=== PATIENT | female | born 1950 | race Caucasian/White ===

== ENCOUNTER 2016-09-22 02:00 | Inpatient (IN) | payer MEDICARE ==
[~2016-09-22] VITALS: Ht 162.6 cm; Wt 77.0 kg
[~2016-09-22 02:00] MED LIST: ASPIRIN CHEWABL81 MG PO; ATROVENT INH S2.5 ML INH; CLARITIN10 MG PO; DALIRESP 500500 MCG PO; FERROUS SULFAT325 M2 PO; FLEXERIL 10 MG10 MG PO; KLONOPIN TAB 00.5 MG PO; LASIX20 MG PO; LEVAQUIN TAB 2250 MG PO; LEVAQUIN500 MG PO; LEVAQUIN750 MG PO; LOPRESSOR 50 MG50 MG PO; LORTAB 5-325 M1 EACH PO; MEDROL DOSEPAK 24 MG PO; NEURONTIN800 MG PO; NITROSTAT0.4 MG SL; PRILOSEC OTC20 MG PO; PROAIR HFA8.5 GM INH; SINGULAIR10 MG PO; SPIRIVA18 MCG INH; SYMBICORT 16010.2 GM INH; THERAGRAN TAB1 EA PO; VENTOLIN/PROVE0.5 ML INH; VITAMIN D350000 UNIT PO; ZANTAC150 MG PO
[2016-09-22 02:44] LABS: HEMOGLOBIN 13.3 gm/dl (12.3-15.3); RED BLOOD COUNT 4.25 M/UL (4.00-5.10); WHITE BLOOD COUNT 15.5 K/UL (4.5-11.0)
[2016-09-22] MEDS ORDERED: POTASSIUM CHLO10 ME2 PO (09:48)
[2016-09-22] MEDS ORDERED: SPIRIVA18 MCG INH (09:48)
[2016-09-22] MEDS ORDERED: LORTAB 5-325 M1 EACH PO (09:50)
[2016-09-22] MEDS ORDERED: KLONOPIN TAB 00.5 MG PO (09:51)
[2016-09-22] MEDS ORDERED: PREDNISONE20 MG PO (09:52)
[2016-09-22] MEDS ORDERED: OMNICEF 300 MG300 MG PO (09:54)
[2016-09-23 04:01] LABS: RED BLOOD COUNT 3.33 M/UL (4.00-5.10); WHITE BLOOD COUNT 12.1 K/UL (4.5-11.0)
[2016-09-23 04:09] LABS: BUN/CREATININE RATIO 19 (0-10)
[2016-09-24 03:47] LABS: HEMOGLOBIN 10.5 gm/dl (12.3-15.3)
[2016-09-24 04:14] LABS: BUN/CREATININE RATIO 22 (0-10)
[2016-09-25 06:43] LABS: HEMOGLOBIN 11.8 gm/dl (12.3-15.3)
[2016-09-25 06:48] LABS: RED BLOOD COUNT 3.88 M/UL (4.00-5.10); WHITE BLOOD COUNT 8.2 K/UL (4.5-11.0)
[2016-09-25 07:01] LABS: BUN/CREATININE RATIO 38 (0-10)
[2016-09-26 06:15] LABS: BUN/CREATININE RATIO 31 (0-10)
[2016-09-27] MEDS ORDERED: NORVASC 5 MG TAB5 MG PO (15:20)
[2016-09-27] MEDS ORDERED: LEVAQUIN750 MG PO (15:20)
[2016-09-27] MEDS ORDERED: FUROSEMIDE20 MG PO (16:03)
[2017-02-11] MEDS ORDERED: SYMBICORT 160-1 INHA INH (11:33)
[2017-02-11] MEDS ORDERED: PROAIR HFA8.5 GM INH (11:40)
[2017-02-15] MEDS ORDERED: CARDIZEM60 MG PO (14:40)
[2017-04-22] MEDS ORDERED: CLARITIN10 M2 PO (11:04)
[2017-04-22] MEDS ORDERED: POTASSIUM CHLO10 MEQ PO (11:05)
[2017-04-22] MEDS ORDERED: NITROSTAT0.4 MG SL (11:06)
[2017-04-22] MEDS ORDERED: SPIRIVA18 MCG INH (11:06)
== END 2016-09-27 17:25 | disposition home or self-care (01) | DRG 208 ==
LOC: ER1 02:00 → ZEROF 05:30 → MED SURG 4 05:30 → CCU 08:06 → MED SURG 4 09-24 13:30
PROVIDERS: Emergency Medicine; Legal Medicine; Physician Assistant; ADMIT Internal Medicine
PROC: 5A1945Z Respiratory Ventilation, 24-96 Consecutive Hours (ICD-10-PCS; principal; 2016-09-22)
PROC: 0BH17EZ Insertion of Endotracheal Airway into Trachea, Via Natural or Artificial Opening (ICD-10-PCS; 2016-09-22)
DX: J96.22 Acute and chronic respiratory failure with hypercapnia (principal); J18.9 Pneumonia, unspecified organism; I50.33 Acute on chronic diastolic (congestive) heart failure; J44.1 Chronic obstructive pulmonary disease with (acute) exacerbation; I47.2 Ventricular tachycardia; I31.3 Pericardial effusion (noninflammatory); J96.21 Acute and chronic respiratory failure with hypoxia; I11.0 Hypertensive heart disease with heart failure; I25.10 Atherosclerotic heart disease of native coronary artery without angina pectoris; E87.6 Hypokalemia; I27.2 Other secondary pulmonary hypertension; D64.9 Anemia, unspecified; I08.1 Rheumatic disorders of both mitral and tricuspid valves; K21.9 Gastro-esophageal reflux disease without esophagitis; G89.29 Other chronic pain; M54.9 Dorsalgia, unspecified; F17.210 Nicotine dependence, cigarettes, uncomplicated; F03.90 Unspecified dementia, unspecified severity, without behavioral disturbance, psychotic disturbance, mood disturbance, and anxiety; F41.1 Generalized anxiety disorder; Z87.01 Personal history of pneumonia (recurrent); Z79.82 Long term (current) use of aspirin; Z99.81 Dependence on supplemental oxygen; Z79.51 Long term (current) use of inhaled steroids; Z79.52 Long term (current) use of systemic steroids; Z79.891 Long term (current) use of opiate analgesic; Z79.899 Other long term (current) drug therapy; Z88.6 Allergy status to analgesic agent; Z88.0 Allergy status to penicillin; Z90.49 Acquired absence of other specified parts of digestive tract; Z98.890 Other specified postprocedural states; Z83.3 Family history of diabetes mellitus; Z82.5 Family history of asthma and other chronic lower respiratory diseases; Z82.49 Family history of ischemic heart disease and other diseases of the circulatory system
CPT/HCPCS: ECHO; 31500; 36415; 36600; 70450; 71010; 80048; 80053; 81001; 82550; 82553; 82607; 82728; 82746; 82803; 83540; 83605; 83690; 83735; 83874; 83880; 84132; 84439; 84443; 84484; 85014; 85018; 85025; 85027; 85610; 85730; 87040; 87086; 93005; 93306; 94002; 94003; 94640; 94660; 96361; 96374; 96375; 97110; 97116; 99291; C9113; J0330; J1650; J1940; J1956; J2185; J2310; J2920; J3370; J7030; J7050; J7070; J7509

== ENCOUNTER 2016-11-18 11:43 | Inpatient (IN) | payer MEDICARE ==
[~2016-11-18] VITALS: Ht 157.5 cm; Wt 60.8 kg
[~2016-11-18 11:43] MED LIST changes: +FUROSEMIDE20 MG PO; +NORVASC 5 MG TAB5 MG PO; +OMNICEF 300 MG300 MG PO; +POTASSIUM CHLO10 ME2 PO; +PREDNISONE20 MG PO
[2016-11-18 12:57] LABS: HEMOGLOBIN 11.5 gm/dl (12.3-15.3); RED BLOOD COUNT 3.85 M/UL (4.00-5.10); WHITE BLOOD COUNT 6.2 K/UL (4.5-11.0)
[2016-11-19 04:52] LABS: HEMOGLOBIN 9.9 gm/dl (12.3-15.3)
[2016-11-19 04:57] LABS: RED BLOOD COUNT 3.3 M/UL (4.00-5.10); WHITE BLOOD COUNT 16.7 K/UL (4.5-11.0)
[2016-11-19 05:19] LABS: BUN/CREATININE RATIO 19 (0-10)
[2016-11-19 14:35] LABS: BORDETELLA PERTUSSIS Not Detected (Negative); CHLAMYDOPHLA PNEUMONIAE Not Detected (Negative); CORONAVIRUS HKU1 Not Detected (Negative); CORONAVIRUS NL63 Not Detected (Negative); CORONAVIRUS OC43 Not Detected (Negative); CORONOAVIRUS 229E Not Detected (Negative); HUMAN METAPNEUMOVIRUS Not Detected (Negative); HUMAN RHINOVIRUS/ENTEROVIRUS Not Detected (Negative); INFLUENZA A Not Detected (Negative); INFLUENZA A H-1-2009 Not Detected (Negative); INFLUENZA A H1 Not Detected (Negative); INFLUENZA A H3 Not Detected (Negative); INFLUENZA B Not Detected (Negative); MYCOPLASMA PNEUMONIAE Not Detected (Negative); PARAINFLUENZA VIRUS 1 Not Detected (Negative); PARAINFLUENZA VIRUS 2 Not Detected (Negative); PARAINFLUENZA VIRUS 3 Not Detected (Negative); PARAINFLUENZA VIRUS 4 Not Detected (Negative); RESPIRATORY SYNCYTIAL VIRUS Not Detected (Negative)
[2016-11-20 07:17] LABS: BUN/CREATININE RATIO 21 (0-10)
[2016-11-20 07:56] LABS: HEMOGLOBIN 8.7 gm/dl (12.3-15.3); RED BLOOD COUNT 2.83 M/UL (4.00-5.10); WHITE BLOOD COUNT 12.1 K/UL (4.5-11.0)
[2016-11-21 05:44] LABS: HEMOGLOBIN 9.3 gm/dl (12.3-15.3); RED BLOOD COUNT 3.06 M/UL (4.00-5.10)
[2016-11-21 05:45] LABS: WHITE BLOOD COUNT 7.5 K/UL (4.5-11.0)
[2016-11-21 06:07] LABS: BUN/CREATININE RATIO 15 (0-10)
[2016-11-22 06:04] LABS: HEMOGLOBIN 9.4 gm/dl (12.3-15.3); RED BLOOD COUNT 3.19 M/UL (4.00-5.10)
[2016-11-22 06:08] LABS: WHITE BLOOD COUNT 4.3 K/UL (4.5-11.0)
[2016-11-22 06:16] LABS: BUN/CREATININE RATIO 13 (0-10)
[2016-11-23] MEDS ORDERED: LEVAQUIN750 MG PO (11:55)
[2016-11-23] MEDS ORDERED: FERROUS SULFAT325 M2 PO (11:55)
[2016-11-23] MEDS ORDERED: MEDROL DOSEPAK 24 MG PO (15:21)
[2016-11-23] MEDS ORDERED: LISINOPRIL10 MG PO (15:23)
[2017-02-11] MEDS ORDERED: SYMBICORT 160-1 INHA INH (11:33)
[2017-02-11] MEDS ORDERED: PROAIR HFA8.5 GM INH (11:40)
[2017-02-15] MEDS ORDERED: CARDIZEM60 MG PO (14:40)
[2017-04-22] MEDS ORDERED: CLARITIN10 M2 PO (11:04)
[2017-04-22] MEDS ORDERED: POTASSIUM CHLO10 MEQ PO (11:05)
[2017-04-22] MEDS ORDERED: NITROSTAT0.4 MG SL (11:06)
[2017-04-22] MEDS ORDERED: SPIRIVA18 MCG INH (11:06)
== END 2016-11-23 12:37 | disposition home or self-care (01) | DRG 871 ==
LOC: ER1 11:43 → PROG CARE 14:24 → ZEROF 14:24 → M/S 14:24 → PROG CARE 23:10 → M/S 11-20 19:13 → ZEROF 11-22 10:48 → M/S 11-22 10:48 → ZEROF 11-23 15:53 → M/S 11-23 15:53
PROVIDERS: Emergency Medicine; ADMIT Emergency Medicine
PROC: 5A09357 Assistance with Respiratory Ventilation, Less than 24 Consecutive Hours, Continuous Positive Airway Pressure (ICD-10-PCS; principal; 2016-11-18)
DX: A41.9 Sepsis, unspecified organism (principal); J18.9 Pneumonia, unspecified organism; J96.21 Acute and chronic respiratory failure with hypoxia; J96.22 Acute and chronic respiratory failure with hypercapnia; J44.1 Chronic obstructive pulmonary disease with (acute) exacerbation; J44.0 Chronic obstructive pulmonary disease with (acute) lower respiratory infection; I50.32 Chronic diastolic (congestive) heart failure; R04.2 Hemoptysis; D50.9 Iron deficiency anemia, unspecified; I25.10 Atherosclerotic heart disease of native coronary artery without angina pectoris; I27.2 Other secondary pulmonary hypertension; I08.1 Rheumatic disorders of both mitral and tricuspid valves; I11.0 Hypertensive heart disease with heart failure; E87.6 Hypokalemia; E83.42 Hypomagnesemia; K21.9 Gastro-esophageal reflux disease without esophagitis; R91.8 Other nonspecific abnormal finding of lung field; G89.29 Other chronic pain; M54.9 Dorsalgia, unspecified; F17.210 Nicotine dependence, cigarettes, uncomplicated; G47.00 Insomnia, unspecified; F32.9 Major depressive disorder, single episode, unspecified; F41.9 Anxiety disorder, unspecified; Z99.81 Dependence on supplemental oxygen; Z79.51 Long term (current) use of inhaled steroids; Z79.891 Long term (current) use of opiate analgesic; Z79.82 Long term (current) use of aspirin; Z79.899 Other long term (current) drug therapy; Z88.6 Allergy status to analgesic agent; Z88.0 Allergy status to penicillin; Z90.49 Acquired absence of other specified parts of digestive tract; Z98.890 Other specified postprocedural states; Z80.1 Family history of malignant neoplasm of trachea, bronchus and lung; Z82.49 Family history of ischemic heart disease and other diseases of the circulatory system; Z83.3 Family history of diabetes mellitus
CPT/HCPCS: ECHO; 36415; 36600; 51702; 71010; 71020; 71250; 80048; 80053; 80202; 81001; 82272; 82550; 82553; 82607; 82728; 82746; 82803; 82962; 83540; 83605; 83735; 83874; 83880; 84132; 84466; 84484; 85025; 85027; 85045; 87040; 87070; 87205; 87486; 87581; 87633; 87798; 93005; 93306; 94640; 94660; 94664; 94667; 94668; 96361; 96365; 96366; 96367; 96376; 97116; 97530; 99285; J0360; J1650; J2185; J3370; J7030; J7050; J7070

== ENCOUNTER 2016-12-16 18:17 | Inpatient (IN) | payer MEDICARE ==
[~2016-12-16] VITALS: Ht 165.1 cm; Wt 83.9 kg
[~2016-12-16 18:17] MED LIST changes: +LISINOPRIL10 MG PO
[2016-12-16 19:08] LABS: HEMOGLOBIN 9.8 gm/dl (12.3-15.3); RED BLOOD COUNT 3.3 M/UL (4.00-5.10); WHITE BLOOD COUNT 13.2 K/UL (4.5-11.0)
[2016-12-16 19:34] LABS: BUN/CREATININE RATIO 9 (0-10)
[2016-12-17 07:13] LABS: HEMOGLOBIN 10.8 gm/dl (12.3-15.3); RED BLOOD COUNT 3.6 M/UL (4.00-5.10)
[2016-12-17 07:14] LABS: WHITE BLOOD COUNT 9.2 K/UL (4.5-11.0)
[2016-12-17] MEDS ORDERED: CYCLOBENZAPRINE10 MG PO (08:26)
[2016-12-18 03:39] LABS: HEMOGLOBIN 9.3 gm/dl (12.3-15.3); WHITE BLOOD COUNT 9.6 K/UL (4.5-11.0)
[2016-12-18 03:41] LABS: RED BLOOD COUNT 3.17 M/UL (4.00-5.10)
[2016-12-18 03:58] LABS: BUN/CREATININE RATIO 19 (0-10)
[2016-12-19 01:01] LABS: HEMOGLOBIN 9.1 gm/dl (12.3-15.3); RED BLOOD COUNT 3.11 M/UL (4.00-5.10); WHITE BLOOD COUNT 9.4 K/UL (4.5-11.0)
[2016-12-19 01:25] LABS: BUN/CREATININE RATIO 16 (0-10)
[2016-12-19 06:28] LABS: HEMOGLOBIN 10.2 gm/dl (12.3-15.3); RED BLOOD COUNT 3.42 M/UL (4.00-5.10)
[2016-12-19 06:31] LABS: WHITE BLOOD COUNT 11.8 K/UL (4.5-11.0)
[2016-12-19 06:49] LABS: BUN/CREATININE RATIO 13 (0-10)
[2016-12-20 05:14] LABS: HEMOGLOBIN 9.2 gm/dl (12.3-15.3); RED BLOOD COUNT 3.14 M/UL (4.00-5.10)
[2016-12-20 05:15] LABS: WHITE BLOOD COUNT 2.8 K/UL (4.5-11.0)
[2016-12-20 05:35] LABS: BUN/CREATININE RATIO 11 (0-10)
[2016-12-21] MEDS ORDERED: CARDIZEM CD240 MG PO (18:20)
[2016-12-21] MEDS ORDERED: LEVAQUIN500 MG PO (18:20)
[2017-02-11] MEDS ORDERED: SYMBICORT 160-1 INHA INH (11:33)
[2017-02-11] MEDS ORDERED: PROAIR HFA8.5 GM INH (11:40)
[2017-02-15] MEDS ORDERED: CARDIZEM60 MG PO (14:40)
[2017-04-22] MEDS ORDERED: CLARITIN10 M2 PO (11:04)
[2017-04-22] MEDS ORDERED: POTASSIUM CHLO10 MEQ PO (11:05)
[2017-04-22] MEDS ORDERED: NITROSTAT0.4 MG SL (11:06)
[2017-04-22] MEDS ORDERED: SPIRIVA18 MCG INH (11:06)
== END 2016-12-21 21:30 | disposition home or self-care (01) | DRG 917 ==
LOC: ER1 18:17 → ZEROF 23:54 → M/S 23:54 → CCU 12-17 08:18 → PROG CARE 12-17 15:15 → M/S 12-18 15:22
PROVIDERS: Emergency Medicine; Family Medicine; ADMIT Internal Medicine
PROC: 5A09457 Assistance with Respiratory Ventilation, 24-96 Consecutive Hours, Continuous Positive Airway Pressure (ICD-10-PCS; principal; 2016-12-16)
DX: T50.901A Poisoning by unspecified drugs, medicaments and biological substances, accidental (unintentional), initial encounter (principal); G92 Toxic encephalopathy; J44.1 Chronic obstructive pulmonary disease with (acute) exacerbation; J44.0 Chronic obstructive pulmonary disease with (acute) lower respiratory infection; I50.32 Chronic diastolic (congestive) heart failure; I27.0 Primary pulmonary hypertension; R00.0 Tachycardia, unspecified; E87.6 Hypokalemia; J20.9 Acute bronchitis, unspecified; F41.9 Anxiety disorder, unspecified; F32.9 Major depressive disorder, single episode, unspecified; Z90.49 Acquired absence of other specified parts of digestive tract; Z98.890 Other specified postprocedural states; Z88.6 Allergy status to analgesic agent; Z88.1 Allergy status to other antibiotic agents; Z79.899 Other long term (current) drug therapy; Z79.82 Long term (current) use of aspirin; I44.7 Left bundle-branch block, unspecified; Z99.81 Dependence on supplemental oxygen; E78.5 Hyperlipidemia, unspecified; I25.10 Atherosclerotic heart disease of native coronary artery without angina pectoris; K21.9 Gastro-esophageal reflux disease without esophagitis; F11.90 Opioid use, unspecified, uncomplicated; F17.200 Nicotine dependence, unspecified, uncomplicated
CPT/HCPCS: 36415; 36600; 70450; 71010; 80048; 80053; 80307; 81001; 82550; 82553; 82803; 83735; 83874; 83880; 84100; 84132; 84439; 84443; 84484; 85025; 85027; 87040; 87070; 87205; 93005; 93270; 94640; 94660; 94664; 94760; 96374; 96375; 96376; 97110; 97116; 97535; 99285; G0480; J1650; J1885; J1940; J1956; J2185; J2310; J7030; J7050; J7509

== ENCOUNTER → 2016-12-30 | Outpatient (CLI) | payer MEDICARE ==
[~2016-12-30] MED LIST changes: +CARDIZEM CD240 MG PO; +CARDIZEM60 MG PO; +CLARITIN10 M2 PO; +CYCLOBENZAPRINE10 MG PO; +POTASSIUM CHLO10 MEQ PO; +SYMBICORT 160-1 INHA INH
== END ==
LOC: HEART 5 10:12
DX: J98.11 Atelectasis (principal)
CPT/HCPCS: 71020-FX